=== PATIENT | male | born 1960 | race Caucasian/White ===

== ENCOUNTER 2020-01-31 11:19 | Inpatient (IN) ==
[2020-01-31] MEDS ORDERED: VANCOMYCIN HCL 2,500 MG in SODIUM CHLORIDE 0.9% 500 ML IV ONE (11:57)
[2020-01-31] MEDS ORDERED: VANCOMYCIN CONSULT ACTIVE PRN ×2 (11:57→12:50)
--- NOTE | 2020-01-31 12:11 | Emergency Department Note ---
History of Present Illness General Chief complaint: Infection Stated complaint: RT ARM INFECTION, HERE FOR ADMISSION/OR Time Seen by Provider: 01/31/20 11:29 History of Present Illness Maximum Pain Intensity: 5 This patient is a 59-year-old male that presents emergency department for eval uation of right elbow pain, swelling and redness that has been getting progressively worse over the last week. The patient reports that he had a fall approximately 1 month ago. He noticed the redness and swelling earlier this week, which prompted him to make an appointment with [facility]. He saw [facility] this morning. The elbow was drained. Reportedly, the fluid was purulent in nature, which is why he was sent here for evaluation. He denies any fever. He has not needed to take anything for pain. Home Medications Home Medications Medication Instructions Recorded Confirmed Type Airborne (ascorbate sodium) 1 tab PO UD 08/27/18 01/31/20 History Lantus Solostar U-100 Insulin 22 unit SUBCUT QPM 08/27/18 01/31/20 History Ocuvite Adult 50 Plus 1 cap PO QAM 08/27/18 01/31/20 History ascorbic acid (vitamin C) [Vitamin 1,000 mg PO QAM 08/27/18 01/31/20 History C] aspirin 81 mg PO QAM 08/27/18 01/31/20 History chlorpheniramine maleate 4 mg PO QAM 08/27/18 01/31/20 History [Chlor-Trimeton] echinacea 1 cap PO QAM 08/27/18 01/31/20 History insulin lispro [Humalog KwikPen 6 unit SUBCUT TID 08/27/18 01/31/20 History Insulin] lisinopril 5 mg PO QAM 08/27/18 01/31/20 History metformin 500 mg PO BID 08/27/18 01/31/20 History spironolactone 25 mg PO QAM 08/27/18 01/31/20 History turmeric root extract 1,053 mg PO QAM 08/27/18 01/31/20 History atorvastatin 40 mg PO PM 01/31/20 01/31/20 History carvedilol 12.5 mg PO DAILY 01/31/20 01/31/20 History meloxicam 15 mg PO DAILY 01/31/20 01/31/20 History thiamine HCl (vitamin B1) [Vitamin 0 mg PO QAM 01/31/20 01/31/20 History B-1] Allergies Allergy/AdvReac Type Severity Reaction Status Date / Time Penicillins Allergy Unknown rash Verified 01/31/20 13:35 Sulfa (Sulfonamide Allergy Unknown rash Verified 01/31/20 13:35 Antibiotics) Past Med/Surg History Medical History Congestive heart failure 01/2018 [facility] - 2/2 viral infection - follow up cardiac cath showed severely reduced EF of 10%. Pt put on maximum medical therapy -- repeat echo 08/06/18 showed EF NORMALIZED TO 55% Deep vein thrombosis LLE - early - after injury - treated w/ AC Diabetes mellitus, type 2 IDDM GERD (gastroesophageal reflux disease) History of sciatica Hyperlipidemia Hypertension Osteoarthritis Surgical History History of arthroscopy of right shoulder History of cardiac cath 02/2018 - after episode CHF - ANNETTE Chuck - no stents/angioplasty History of removal of cyst back History of repair of anterior cruciate ligament of left knee History of total knee replacement Rt Nausea and vomiting after administration of anesthetic agent Social History Smoking Status: Never smoker Second Hand Exposure: No; Do You Dip or Chew Tobacco: No; Tobacco Cessation Education Requested by Patient: No Hx Alcohol Use: Yes Alcohol type: beer Hx Substance Use: No Preferred Language: Iraqi Communication Ability: Effective Director Of Community Education Required: No Beliefs That Will Affect Care: None Current Living Situation: Spouse Other Information That Helps Us Care for You: No Feels Safe at Home: Yes Safety Concerns: Feels Safe At This Time Assistive Devices: Contacts and Glasses Review of Systems A total of 10 systems reviewed and were otherwise negative Physical Exam Vital Signs Vital Signs - 24 hr 01/31/20 11:21 Temperature 37 C Temperature Source Oral Pulse Rate 84 Pulse Rhythm Regular Pulse Strength Normal Respiratory Rate 22 Respiratory Effort / Characteristics Non-Labored Spontaneous Respiratory Depth Normal Respiratory Pattern Regular Blood Pressure 126/73 Blood Pressure Mean 90 Blood Pressure Position Sitting Pulse Oximetry 95 Oxygen Delivery Method Room Air Sepsis Recent Fever Within 48 Hours No Sepsis New/Unexplained Change in Mental Status No Sepsis Action Taken by Nursing No Action Required Constitutional WD/WN, vitals as above Eyes EOM intact bilaterally ENMT external ear and nose normal, oropharynx normal Neck trachea midline Respiratory normal respiratory effort, lungs clear to auscultation Cardiovascular RRR, no murmur, no edema Gastrointestinal (Abdomen) normal bowel sounds, soft, nontender, no hepatosplenomegaly Musculoskeletal Significant erythema and edema noted over the olecranon process of the right elbow. Full flexion and extension of the elbow. Radial pulse +2 in the right wrist. Skin no rashes, warm and dry Neurologic Alert and oriented x3. No focal motor deficits. Psychiatric Acting appropriately Course Course Patient was seen and examined Vital signs including blood pressure were reviewed medications list was verified with patient Labs were obtained, and a saline lock was established Orthopedics was consulted. Medications were ordered. Upon reevaluation, the patient was resting comfortably. Orthopedics evaluated the patient at the bedside. He was comfortable with the disposition. The patient will likely be admitted for further evaluation. Consultations Consultation #1: [facility] Administered Medications Sodium Chloride (Nss) 500 mls @ 80 mls/hr IV .[id number] MIRIAM Stop: 03/01/20 12:29 Last Admin: 01/31/20 20:05 Dose: Not Given Documented by: [id number] Admin: 01/31/20 12:42 Dose: 80 mls/hr Documented by: [id number] Insulin Aspart (Insulin Aspart 100 Units/Ml 3 Ml Pen) 0 units SC ACHS MIRIAM Stop: 01/31/20 22:00 Last Admin: 01/31/20 18:45 Dose: 13 units Documented by: [id number] Cosigned by: [id number] Miscellaneous (Chlorpheniramine: Order Awaiting Action) 1 ea N/A QS MIRIAM Stop: 03/01/20 15:59 Last Admin: 01/31/20 16:54 Dose: Not Given Documented by: [id number] Discontinued Medications Vancomycin HCl 2,500 mg/ (Sodium Chloride) 550 mls @ 200 mls/hr IV NOW ONE Stop: 01/31/20 14:41 Last Infusion: 01/31/20 16:45 Dose: 0 mls/hr Documented by: [id number] Admin: 01/31/20 12:42 Dose: 200 mls/hr Documented by: [id number] Miscellaneous Information (Vancomycin Consult Active) 1 ea N/A UD PRN PRN Reason: Consult Stop: 03/01/20 11:56 Last Admin: 01/31/20 12:42 Dose: 1 ea Documented by: [id number] Medical Decision Making Medical Records Attestation: I reviewed the patient's medical records. Home Medications Current Medication List: was personally reviewed by me Laboratory Data Attestation: I reviewed the patient's lab results. Result diagrams: 01/31/20 12:13 01/31/20 13:10 Lab Results 01/31/20 01/31/20 01/31/20 Range/Units 12:13 12:13 12:13 WBC 7.51 (4.8-10.8) K/uL RBC 4.42 L (4.7-6.1) M/uL Hgb 14.2 (14.0-18.0) g/dL Hct 43.5 (42-52) % MCV 98.4 (80-100) fL MCH 32.1 (25-34) pg MCHC 32.6 (32-36) g/dL RDW Std Deviation 47.5 H (36.4-46.3) fL RDW Coeff of Brain 13.1 (11.5-14.5) % Plt Count 219 (130-400) K/uL MPV 11.4 H (7.4-10.4) fL Immature Gran % (Auto) 0.3 % Neut % (Auto) 68.5 % Lymph % (Auto) 15.0 % [place] % (Auto) 14.0 % Eos % (Auto) 2.1 % Baso % (Auto) 0.1 % Neut # (Auto) 5.14 (1.4-6.5) K/uL Lymph # (Auto) 1.13 L (1.2-3.4) K/uL [place] # (Auto) 1.05 H (0.11-0.59) K/uL Eos # (Auto) 0.16 (0-0.5) K/uL Baso # (Auto) 0.01 (0-0.2) K/uL Immature Gran # (Auto) 0.02 (0.00-0.02) K/uL ESR 61 H (0-14) mm/hr PT 10.8 (9.0-12.0) Seconds INR 1.0 (0.9-1.1) Sodium (136-145) mmol/L Potassium (3.5-5.1) mmol/L Chloride (98-107) mmol/L Carbon Dioxide (21-32) mmol/L Anion Gap (3-11) BUN (7-18) mg/dl Creatinine (0.6-1.4) mg/dl Est Cr Clr Drug Dosing ml/min Est GFR ( Amer) Est GFR (Non-Af Amer) BUN/Creatinine Ratio (10-20) Glucose (70-99) mg/dl Calcium (8.5-10.1) mg/dl Total Bilirubin (0.2-1) mg/dl AST (15-37) U/L ALT (12-78) U/L Alkaline Phosphatase (45-117) U/L C-Reactive Protein (0-0.29) mg/dl Total Protein (6.4-8.2) gm/dl Albumin (3.4-5.0) gm/dl Globulin (2.5-4.0) gm/dl Albumin/Globulin Ratio (0.9-2) 01/31/20 Range/Units 12:13 WBC (4.8-10.8) K/uL RBC (4.7-6.1) M/uL Hgb (14.0-18.0) g/dL Hct (42-52) % MCV (80-100) fL MCH (25-34) pg MCHC (32-36) g/dL RDW Std Deviation (36.4-46.3) fL RDW Coeff of Brain (11.5-14.5) % Plt Count (130-400) K/uL MPV (7.4-10.4) fL Immature Gran % (Auto) % Neut % (Auto) % Lymph % (Auto) % [place] % (Auto) % Eos % (Auto) % Baso % (Auto) % Neut # (Auto) (1.4-6.5) K/uL Lymph # (Auto) (1.2-3.4) K/uL [place] # (Auto) (0.11-0.59) K/uL Eos # (Auto) (0-0.5) K/uL Baso # (Auto) (0-0.2) K/uL Immature Gran # (Auto) (0.00-0.02) K/uL ESR (0-14) mm/hr PT (9.0-12.0) Seconds INR (0.9-1.1) Sodium 135 L (136-145) mmol/L Potassium (3.5-5.1) mmol/L Chloride 105 (98-107) mmol/L Carbon Dioxide 26 (21-32) mmol/L Anion Gap 4.0 (3-11) BUN 15 (7-18) mg/dl Creatinine 0.88 (0.6-1.4) mg/dl Est Cr Clr Drug Dosing 128.4 ml/min Est GFR ( Amer) 110.5 Est GFR (Non-Af Amer) 95.4 BUN/Creatinine Ratio 17.2 (10-20) Glucose 218 H (70-99) mg/dl Calcium 8.9 (8.5-10.1) mg/dl Total Bilirubin 0.6 (0.2-1) mg/dl AST (15-37) U/L ALT 58 (12-78) U/L Alkaline Phosphatase 113 (45-117) U/L C-Reactive Protein 8.91 H (0-0.29) mg/dl Total Protein 7.5 (6.4-8.2) gm/dl Albumin 3.1 L (3.4-5.0) gm/dl Globulin 4.4 H (2.5-4.0) gm/dl Albumin/Globulin Ratio 0.7 L (0.9-2) MDM Narrative Differential diagnosis: Septic bursitis, septic joint, cellulitis, among others were considered This patient is a 59-year-old male who presents emergency department from [facility] for evaluation of right elbow redness, swelling and pain after a fall approximately 1 month ago. The bursa was reportedly drained by orthopedics earlier this morning, and concern for infection. For this reason, he was sent to the emergency department for likely inpatient management, IV antibiotics and surgery. On exam, he had full flexion and extension of the elbow. He was neurovascularly intact. Vital signs were stable. He was evaluated by orthopedics at the bedside. He will be started on vancomycin. He will be admitted by orthopedics for further management. Impression & Plan Septic bursitis Discharge Plan Visit Data Chief Complaint: Infection Stated Complaint: RT ARM INFECTION, HERE FOR ADMISSION/OR ED Provider: Maurilio Bowden ED Midlevel Provider: Glenna King Discharge Problem: Septic bursitis Patient Disposition: Admitted As Inpatient Discharge Instructions Interventions: ED Discharge Assessment Last Done: 01/31/20 14:21
[2020-01-31 12:29] LABS: Basophils # (auto) 0.01 K/uL (0-0.2); Basophils % (auto) 0.1 %; Eosinophils # (auto) 0.16 K/uL (0-0.5); Eosinophils % (auto) 2.1 %; Hematocrit (blood only) 43.5 % (42-52); Hemoglobin 14.2 g/dL (14.0-18.0); Immature Granulocytes # (auto) 0.02 K/uL (0.00-0.02); Immature Granulocytes % (auto) 0.3 %; Lymphocytes # (auto) 1.13 K/uL (1.2-3.4); Mean Corpuscular Hemoglobin 32.1 pg (25-34); Mean Corpuscular Hgb Conc 32.6 g/dL (32-36); Mean Corpuscular Volume 98.4 fL (80-100); Mean Platelet Volume 11.4 fL (7.4-10.4); Monocytes # (auto) 1.05 K/uL (0.11-0.59); Neutrophils # (auto) 5.14 K/uL (1.4-6.5); Neutrophils % (auto) 68.5 %; Platelet Count 219 K/uL (130-400); RDW Coefficient of Variation 13.1 % (11.5-14.5); RDW Standard Deviation 47.5 fL (36.4-46.3); Red Blood Count 4.42 M/uL (4.7-6.1); White Blood Count 7.51 K/uL (4.8-10.8)
[2020-01-31 12:39] LABS: Prothrombin Time 10.8 Seconds (9.0-12.0)
[2020-01-31] MEDS: SODIUM CHLORIDE 0.9% 500 ML IV SCH ×2 (12:42→20:05)
[2020-01-31 12:54] LABS: Albumin Level 3.1 gm/dl (3.4-5.0); BUN Creatinine Ratio 17.2 (10-20); Calcium 8.9 mg/dl (8.5-10.1); Creatinine Clr Calc Pharmacy 128.4 ml/min; Est GFR (African American) 110.5; Est GFR (Non-African American) 95.4
[2020-01-31 12:59] LABS: Albumin Globulin Ratio 0.7 (0.9-2); Bilirubin,Total 0.6 mg/dl (0.2-1); C Reactive Protein 8.91 mg/dl (0-0.29); Globulin 4.4 gm/dl (2.5-4.0); Total Protein 7.5 gm/dl (6.4-8.2)
--- NOTE | 2020-01-31 13:15 | Hospitalist Consultation ---
Date of Consultation January 31, 2020 Assessment & Plan (1) Olecranon bursitis: Patient scheduled to the operating room on 02/01/2020 in the morning patient is diabetic with an infection he was given vancomycin in the emergency department cultures were obtained. 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 There was discussion at that point time about a defibrillator. We have no recent echocardiogram here. Patient states he recently saw his fruit trimmer, Alma Gagnon, at [facility] and was told everything was "okay". He however continues to take carvedilol 12.5 twice daily lisinopril 5 spironolactone 25. He has persistent bilateral lower extremity edema he is on aspirin atorvastatin although his catheterization in February 2018 showed only very minor luminal irregularities. (3) Diabetes mellitus, type 2: Patient typically takes insulin lispro 6 with meals Lantus 20 4 at night plus Metformin twice daily (4) Hypertension: History of Present Illness History of Present Illness SOC the patient for medical consultation is he is here for a washout of his right elbow which looks to have a fairly significantly infected olecranon bursa. Patient is a history of lateral cardiomyopathy in the past try to obtain more current records. Remains on medications for heart failure with beta-quin ANASTASIA inhibitor mild diuretic also on aspirin and statin although was coronary anatomy was not significantly altered based on catheterization of 2018 He is also diabetic does not daily check his sugars he is morbidly obese Otherwise though he does not have any anginal symptoms he is dyspneic with exertion likely due to his obesity he denies having sleep apnea he is tolerated anesthesia in the past exception of some minor nausea Allergies Allergy/AdvReac Type Severity Reaction Status Date / Time Penicillins Allergy Unknown rash Verified 09/04/18 08:07 Sulfa (Sulfonamide Allergy Unknown rash Verified 09/04/18 08:07 Antibiotics) Home Medications Home Medications Medication Instructions Recorded Confirmed Type Airborne (ascorbate sodium) See Rx Instructions .ROUTE .COMPLEX 08/27/18 09/04/18 History Lantus Solostar U-100 Insulin 24 unit SUBCUT QPM 08/27/18 09/04/18 History Ocuvite Adult 50 Plus 1 cap PO QAM 08/27/18 09/04/18 History Vitamin B-1 1 dose PO QAM 08/27/18 09/04/18 History ascorbic acid (vitamin C) [Vitamin 2 g PO QAM 08/27/18 09/04/18 History C] aspirin 81 mg PO QAM 08/27/18 09/04/18 History atorvastatin 80 mg PO PM 08/27/18 09/04/18 History carvedilol 12.5 mg PO BID 08/27/18 09/04/18 History chlorpheniramine maleate 4 mg PO QAM 08/27/18 09/04/18 History [Chlor-Trimeton] echinacea 1 cap PO QAM 08/27/18 09/04/18 History insulin lispro [Humalog KwikPen 6 unit SUBCUT TID 08/27/18 09/04/18 History Insulin] lisinopril 5 mg PO QAM 08/27/18 09/04/18 History metformin 500 mg PO BID 08/27/18 09/04/18 History multivitamin with minerals [Men's 1 tab PO QAM 08/27/18 09/04/18 History One Daily] spironolactone 25 mg PO QAM 08/27/18 09/04/18 History turmeric root extract 1,053 mg PO QAM 08/27/18 09/04/18 History oxycodone-acetaminophen [Percocet] 1 - 2 tab PO .q4-6h PRN #30 tab 09/04/18 Rx Patient History Medical History (Updated 01/31/20 @ 13:06 by Mike Fishman MD) Congestive heart failure 01/2018 [facility] - 2/2 viral infection - follow up cardiac cath showed severely reduced EF of 10%. Pt put on maximum medical therapy -- repeat echo 08/06/18 showed EF NORMALIZED TO 55% Deep vein thrombosis LLE - early - after injury - treated w/ AC Diabetes mellitus, type 2 IDDM GERD (gastroesophageal reflux disease) History of sciatica Hyperlipidemia Hypertension Osteoarthritis Surgical History History of arthroscopy of right shoulder History of cardiac cath 02/2018 - after episode CHF - ANNETTE Chuck - no stents/angioplasty History of removal of cyst back History of repair of anterior cruciate ligament of left knee History of total knee replacement Rt Nausea and vomiting after administration of anesthetic agent Social History Smoking Status: Never smoker Second Hand Exposure: No; Do You Dip or Chew Tobacco: No; Tobacco Cessation Education Requested by Patient: No Hx Alcohol Use: Yes Alcohol type: beer Hx Substance Use: No Preferred Language: Citizen Of [place] Communication Ability: Effective Ski Production Supervisor Required: No Beliefs That Will Affect Care: None Current Living Situation: Spouse Other Information That Helps Us Care for You: No Feels Safe at Home: Yes Safety Concerns: Feels Safe At This Time Assistive Devices: Glasses Review of Systems Review of Systems: Mild distress and fatigue no headache, blurry or double vision no speech or swallowing issues no chest pain, pressure or palpitations Dyspnea on exertion he attributes to being overweight, no cough or wheezes no abdominal pain, nausea or vomiting, diarrhea or constipation no dysuria, hematuria or frequency Right elbow pain and swelling, bilateral lower extremity swelling no back pain, CVA tenderness or radicular pain no bruising, bleeding or rashes no focal signs of weakness or numbness or altered sensation no complaints of anxiety or depression. Physical Exam Physical Exam: The patient appeared well nourished and normally developed. His protuberant abdomen is morbidly obese with a BMI of 38.5 Vital signs as documented. Head exam is normocephalic atraumatic no scleral icterus Neck is without JVD, thyromegaly, or carotid bruits. Lungs are clear to auscultation, no focal loss of breath sounds Cardiac exam, Rhythm is regular.. No murmurs, rubs or gallops. Abdominal exam reveals normal bowel sounds, soft non tender, no masses Extremities are 2+ edematous and both extremities are reddened Right elbow is fluctuant erythemic with a entrance wound seen at the point of his elbow Neurologic exam is alert and oriented, no focal loss of strength or sensation Skin is and is of possible cellulitis with likely deeper abscess on his right elbow Psychologically is without concerns for anxiety or depression. Results & Data Results & Data ([facility]) Vital Signs (Past 12 Hours) Vital Signs Temp Pulse Resp BP Pulse Ox 01/31/20 11:21 98.6 F 84 22 126/73 95 PG Care Time/CCT Total # of Minutes Spent Total Time Spent with Patient: Total time spent is greater than 50% in coordination of care (as documented) at patient's floor/unit and/or counseling patient: Coding Level of Care Code 70843 Inpt Consult Level 4 Diagnoses Olecranon bursitis M70.20 Congestive heart failure I50.9 Diabetes mellitus, type 2 E11.9 Hypertension I10
[2020-01-31 13:30] LABS: Potassium 4.1 mmol/L (3.5-5.1)
--- NOTE | 2020-01-31 13:46 | XRay Report ---
TWO VIEW CHEST CLINICAL HISTORY: Preoperative examination. FINDINGS: PA and lateral chest radiographs are compared to study dated 07/19/2013. The heart is enlarg ed noting atherosclerotic calcification of the thoracic aorta. The pulmonary vasculature is nonconges sky. There is bibasilar scarring/atelectasis. No airspace consolidation or pleural effusion is identi fied. There is no pneumothorax. The skeletal structures are osteopenic. There are numerous healed lef t-sided rib fractures. Degenerative change is seen throughout the thoracic spine. IMPRESSION: Cardiomegaly with no active disease in the chest. ACT 112: Negative or not required by law. Electronically signed by: J Luis Berry M.D. 01/31/2020 1:44 PM
[2020-01-31] MEDS ORDERED: PHARMACY GLYCEMIC MGMT CONSULT PRN (15:14)
--- NOTE | 2020-01-31 15:17 | History & Physical Report ---
Date of Service January 31, 2020 Assessment & Plan (1) Olecranon bursitis: Septic olecranon bursitis right Gram stain and culture is pending at this time. Patient started on vancomycin. He will be made n.p.o. after midnight for planned irrigation and debridement of his septic olecranon bursitis of the right elbow. Hospitalist consult has been placed for preoperative clearance. Admission and Anticipated Discharge Date Admission Date: January 31, 2020 History of Present Illness Chief Complaint: Right elbow pain and swelling Primary Care Provider: Rachelyessenia Thakur Patient is a 59-year-old white male who was seen in Dr. Savage's office today. He had noticed an increase swelling of his right elbow that started a few days ago. Patient states that he had bumped his elbow approximately month ago and had torn the skin off of it a little bit. He had no problems with it since that time however in the last few days, he noticed increased swelling and some erythema. This continued to progress to the point it became more painful and more swollen. Denies any fever or chills or nausea and vomiting. No flu or cold-like symptoms. He was able to get into see Dr. Savage in the office today. He was able to draw off at least 40 cc of fluid from the swollen olecr anon bursa area. This looked obviously purulent and with the increasing erythema going up the arm, it was felt that the patient would need an irrigation debridement of a septic olecranon bursitis. He is now here in the hospital to be admitted for IV antibiotics and I&D of his right elbow. Allergies Allergy/AdvReac Type Severity Reaction Status Date / Time Penicillins Allergy Unknown rash Verified 01/31/20 13:35 Sulfa (Sulfonamide Allergy Unknown rash Verified 01/31/20 13:35 Antibiotics) Home Medications Home Medications Medication Instructions Recorded Confirmed Type Airborne (ascorbate sodium) 1 tab PO UD 08/27/18 01/31/20 History Lantus Solostar U-100 Insulin 22 unit SUBCUT QPM 08/27/18 01/31/20 History Ocuvite Adult 50 Plus 1 cap PO QAM 08/27/18 01/31/20 History ascorbic acid (vitamin C) [Vitamin 1,000 mg PO QAM 08/27/18 01/31/20 History C] aspirin 81 mg PO QAM 08/27/18 01/31/20 History chlorpheniramine maleate 4 mg PO QAM 08/27/18 01/31/20 History [Chlor-Trimeton] echinacea 1 cap PO QAM 08/27/18 01/31/20 History insulin lispro [Humalog KwikPen 6 unit SUBCUT TID 08/27/18 01/31/20 History Insulin] lisinopril 5 mg PO QAM 08/27/18 01/31/20 History metformin 500 mg PO BID 08/27/18 01/31/20 History spironolactone 25 mg PO QAM 08/27/18 01/31/20 History turmeric root extract 1,053 mg PO QAM 08/27/18 01/31/20 History atorvastatin 40 mg PO PM 01/31/20 01/31/20 History carvedilol 12.5 mg PO DAILY 01/31/20 01/31/20 History meloxicam 15 mg PO DAILY 01/31/20 01/31/20 History thiamine HCl (vitamin B1) [Vitamin 0 mg PO QAM 01/31/20 01/31/20 History B-1] Past Med/Surg History Medical History Congestive heart failure 01/2018 [facility] - 2/2 viral infection - follow up cardiac cath showed severely reduced EF of 10%. Pt put on maximum medical therapy -- repeat echo 08/06/18 showed EF NORMALIZED TO 55% Deep vein thrombosis LLE - early - after injury - treated w/ AC Diabetes mellitus, type 2 IDDM GERD (gastroesophageal reflux disease) History of sciatica Hyperlipidemia Hypertension Osteoarthritis Surgical History History of arthroscopy of right shoulder History of cardiac cath 02/2018 - after episode CHF - ANNETTE Chuck - no stents/angioplasty History of removal of cyst back History of repair of anterior cruciate ligament of left knee History of total knee replacement Rt Nausea and vomiting after administration of anesthetic agent Social History Smoking Status: Never smoker Second Hand Exposure: No; Do You Dip or Chew Tobacco: No; Tobacco Cessation Education Requested by Patient: No Hx Alcohol Use: Yes Alcohol type: beer Hx Substance Use: No Preferred Language: Slovak Communication Ability: Effective Parcel 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 Clerk Required: No Beliefs That Will Affect Care: None Current Living Situation: Spouse Other Information That Helps Us Care for You: No Feels Safe at Home: Yes Safety Concerns: Feels Safe At This Time Assistive Devices: Contacts and Glasses Review of Systems Review of Systems: All systems reviewed & are unremarkable except as noted in HPI & below Physical Exam Constitutional: Obese white male, pleasant and cooperative, no acute distress Eyes: PERRL, conjunctivae normal, anicteric sclerae ENMT: external ear and nose normal, oropharynx normal Respiratory: normal respiratory effort, lungs clear to auscultation Cardiovascular: Rate/Rhythm: regular rate and regular rhythm Gastrointestinal (Abdomen): normal bowel sounds, soft, nontender, no hepatosplenomegaly Musculoskeletal: On examination of his right elbow, he has an area over the olecranon bursa that is mild to moderately swollen. There is a slight amount of fluctuance to the swollen area that had been recently aspirated. Moderate erythema over the elbow that is traveling proximally. Tender on palpation over the right elbow. Denies tenderness in the upper arm into the axilla. Denies any pain in the forearm or wrist. He has good range of motion of the right elbow at this time and has full extension and almost full flexion but states it feels tight when getting close to full flexion. Denies any numbness or tingling traveling down the right arm into the fingers. Sensation is intact. Capillary refill is less than 2 seconds. Pulses are equal bilaterally of the upper extremities. Neurologic: No gross motor or sensory loss seen at this time. Psychiatric: A+Ox3, euthymic affect Results & Data Results & Data ([facility]) Vital Signs (Past 12 Hours) Vital Signs Temp Pulse Pulse Resp BP BP Pulse Ox 01/31/20 14:51 37 C 66 17 119/79 98 01/31/20 13:07 37 C 75 22 133/68 95 01/31/20 11:21 37 C 84 22 126/73 95 Code Status & VTE Plan VTE Prophylaxis Plan VTE Prophylaxis will be ordered: Yes
[2020-01-31] MEDS ORDERED: GLUCAGON FOR INJ 1 MG VIAL SQ PRN (15:30)
[2020-01-31] MEDS ORDERED: DEXTROSE 50% 50 ML SYRINGE IV PRN (15:30)
[2020-01-31] MEDS ORDERED: GLUCOSE 10 TABS/TUBE PO PRN (15:30)
[2020-01-31] MEDS ORDERED: GLUCOSE 40% GEL 15 GM TUBE PO PRN (15:30)
[2020-01-31] MEDS ORDERED: CARBOHYDRATES FOR HYPOGLYCEMIA PO PRN (15:30)
--- NOTE | 2020-01-31 15:36 | Pharmacy Report ---
Pharmacy Abx Dose Short Note - Date of Service January 31, 2020 - Assessment & Plan Assessment 59 year old M ordered vancomycin IV for right septic olecranon bursitis Right elbow and BC pending Plan Vancomycin * Loading dose: 2500 mg (20 mg/kg) * Maintenance dose: 1500 mg (11.6 mg/kg) IV q10 hours * reduced dose and extended dosing interval due to likelihood of drug accumulation in obesity * Goal trough level: ~15 mcg/mL * Trough level ordered for: 02/01 @ 5395 Pharmacy will continue to follow and will adjust dose/frequency as necessary. Thank you.
--- NOTE | 2020-01-31 16:16 | Electrocardiogram Report ---
Test Reason : Blood Pressure : / mmHG Vent. Rate : 071 BPM Atrial Rate : 071 BPM P-R Int : 174 ms QRS Dur : 096 ms QT Int : 408 ms P-R-T Axes : 013 011 047 degrees QTc Int : 443 ms Normal sinus rhythm Normal ECG When compared with ECG of 23-AUG-2013 08:41, Premature atrial complexes are no longer Present Confirmed by Felice Weiss ([id number]) on 01/31/2020 4:16:01 PM Referred By: REFERRED SELF Confirmed By:Felice Weiss
[2020-01-31] MEDS: INSULIN ASPART 100 UNITS/ML 3 ML PEN SC SCH ×2 (18:45→21:42)
[2020-01-31] MEDS ORDERED: ATORVASTATIN 40 MG TAB PO SCH (21:00)
[2020-01-31] MEDS: carvediloL 12.5 MG TAB PO SCH (21:06)
[2020-01-31] MEDS: INSULIN GLARGINE SOLOSTAR 100 UNITS/ML 3 ML PEN SC SCH (21:41)
[2020-01-31] MEDS ORDERED: MoRPHine SULFATE 2 MG/ML CARP IV PRN (21:54)
[2020-01-31] MEDS ORDERED: ACETAMINOPHEN 325 MG TAB PO PRN (21:54)
[2020-01-31] MEDS ORDERED: SODIUM CHLORIDE 0.9% 1000ML 1,000 ML IV SCH (22:00)
[2020-01-31] MEDS: VANCOMYCIN HCL 1,500 MG in SODIUM CHLORIDE 0.9% 500 ML IV SCH (22:32)
[2020-02-01] MEDS: INSULIN ASPART 100 UNITS/ML 3 ML PEN SC SCH ×5 (00:35→21:35)
[2020-02-01] MEDS ORDERED: oxyCODONE/ACETAMINOPHEN 5mg/325mg TAB PO PRN (00:59)
[2020-02-01 07:25] LABS: Creatinine Clr Calc Pharmacy 144.9 ml/min; Est GFR (African American) 116.1; Est GFR (Non-African American) 100.2
--- NOTE | 2020-02-01 07:41 | History & Physical Bridge Note ---
Date of Service February 01, 2020 History & Physical Bridge Note I have examined the patient, reviewed the History & Physical and in the interval since the performance of the History & Physical I have noted the following changes of clinical significance: no changes noted
--- NOTE | 2020-02-01 07:48 | Orthopedic Progress Note ---
Date of Service February 01, 2020 Assessment & Plan (1) Olecranon bursitis: Septic olecranon bursitis right elbow not relieved with IV antibiotics and aspiration. Needs to proceed with incision drainage irrigation debridement packing with iodoform gauze on a urgent basis today view of comorbidity of insulin-dependent diabetes. Subjective Does have increased soreness in right elbow and inability to sleep in hospital Review of Systems Review of Systems: No chills or signs of sepsis at this point Physical Exam Physical Exam: Recurrence of effusion with large olecranon bursa fluid collection with erythema spreading up posterior triceps area Results & Data ([facility]) Vital Signs (Past 12 Hours) Vital Signs Temp Pulse Resp BP Pulse Ox 01/31/20 23:31 37.7 C H 76 18 110/70 94 01/31/20 21:05 72 136/77
[2020-02-01] MEDS: CEROVITE ADV FORMULA TAB PO SCH (07:59)
[2020-02-01] MEDS: lisinopril 5 MG TAB PO SCH (07:59)
[2020-02-01] MEDS: SPIRONOLACTONE 25 MG TAB PO SCH (07:59)
[2020-02-01] MEDS: carvediloL 12.5 MG TAB PO SCH ×2 (07:59→20:50)
[2020-02-01] MEDS: VANCOMYCIN HCL 1,500 MG in SODIUM CHLORIDE 0.9% 500 ML IV SCH ×2 (08:03→19:33)
[2020-02-01] MEDS ORDERED: NON-FORMULARY MEDICATION (Chlorpheniramine Maleate [Chlor-Trimeton] 4 MG) PO SCH (09:00)
[2020-02-01 09:09] LABS: Estimated Average Glucose 232 mg/dl; Hemoglobin A1C 9.7 % (4.5-5.6)
[2020-02-01] MEDS ORDERED: fentaNYL citrate 100 MCG/2 ML VIAL ONE ×2 (09:17→11:05)
[2020-02-01] MEDS ORDERED: LIDOCAINE HCL 2% 2 ML VIAL/AMP(20MG/ML) INFIL ONE (09:17)
[2020-02-01] MEDS ORDERED: ONDANSETRON INJ 2 MG/ML 2 ML VIAL ONE (09:17)
[2020-02-01] MEDS ORDERED: BACITRACIN INJ 50,000 UNIT VIAL ONE (09:17)
[2020-02-01] MEDS ORDERED: PROPOFOL IV EMULSION 10 MG/ML 20 ML VIAL IV ONE (09:17)
[2020-02-01] MEDS ORDERED: MIDAZOLAM HCL 1 MG/ML 2ML VIAL ONE (09:18)
--- NOTE | 2020-02-01 09:18 | Anesthesiology Consultation ---
Date of Service February 01, 2020 Assessment & Plan ASA [id number] Proposed Anesthesia Anesthesia Type: General Risk / Benefits Reviewed With: PT / POA / Parent / Guardian, Accepts Plan and Informed Consent Obtained History Surgery Operation Date: 02/01/20 07:30 Proposed Procedures p Right Elbow Incision and Drainage Olecrannon Bursa - Paul Savage MD Height/Weight Height: 6 ft Weight: 128.7 kg Allergies Allergy/AdvReac Type Severity Reaction Status Date / Time Penicillins Allergy Unknown rash Verified 01/31/20 13:35 Sulfa (Sulfonamide Allergy Unknown rash Verified 01/31/20 13:35 Antibiotics) Medications Home Medications Medication Instructions Recorded Confirmed Last Taken Airborne (ascorbate sodium) 1 tab PO UD 08/27/18 01/31/20 09/03/18 08:00 Lantus Solostar U-100 Insulin 22 unit SUBCUT QPM 08/27/18 01/31/20 09/03/18 21:30 Ocuvite Adult 50 Plus 1 cap PO QAM 08/27/18 01/31/20 08/31/18 08:00 ascorbic acid (vitamin C) [Vitamin 1,000 mg PO QAM 08/27/18 01/31/20 09/03/18 07:00 C] aspirin 81 mg PO QAM 08/27/18 01/31/20 09/03/18 07:00 chlorpheniramine maleate 4 mg PO QAM 08/27/18 01/31/20 09/03/18 07:00 [Chlor-Trimeton] echinacea 1 cap PO QAM 08/27/18 01/31/20 08/31/18 08:00 insulin lispro [Humalog KwikPen 6 unit SUBCUT TID 08/27/18 01/31/20 09/03/18 17:00 Insulin] lisinopril 5 mg PO QAM 08/27/18 01/31/20 09/03/18 08:00 metformin 500 mg PO BID 08/27/18 01/31/20 09/03/18 20:00 spironolactone 25 mg PO QAM 08/27/18 01/31/20 09/03/18 08:00 turmeric root extract 1,053 mg PO QAM 08/27/18 01/31/20 08/31/18 08:00 atorvastatin 40 mg PO PM 01/31/20 01/31/20 Unknown carvedilol 12.5 mg PO DAILY 01/31/20 01/31/20 Unknown meloxicam 15 mg PO DAILY 01/31/20 01/31/20 Unknown thiamine HCl (vitamin B1) [Vitamin 0 mg PO QAM 01/31/20 01/31/20 Unknown B-1] Active Medications Generic Name Dose Route Start Last Admin Trade Name Freq PRN Reason Stop Dose Admin Acetaminophen 650 mg 01/31/20 21:54 01/31/20 22:30 Acetaminophen 325 Mg Tab PO 03/01/20 21:53 650 mg Q4H PRN Administration pain, fever Atorvastatin Calcium 80 mg 01/31/20 21:00 01/31/20 21:06 Atorvastatin 40 Mg Tab PO 03/01/20 20:59 40 mg PM MIRIAM Administration Carvedilol 12.5 mg 01/31/20 21:00 02/01/20 07:59 Carvedilol 12.5 Mg Tab PO 03/01/20 20:59 12.5 mg BID MIRIAM Administration Vancomycin HCl 1,500 mg/ 530 mls @ 200 mls/hr 01/31/20 23:00 02/01/20 08:03 Sodium Chloride IV 02/07/20 11:59 200 mls/hr Q10H MIRIAM Administration Sodium Chloride 1,000 mls @ 80 mls/hr 01/31/20 22:00 02/01/20 01:12 Nss 1000ml IV 03/01/20 21:59 80 mls/hr .[id number] MIRIAM Infusion Insulin Aspart 0 units 02/01/20 00:00 02/01/20 06:38 Insulin Aspart 100 Units/Ml 3 Ml Pen SC 03/02/20 00:00 Not Given Q6 MIRIAM Insulin Glargine 0 units 01/31/20 21:00 01/31/20 21:41 Insulin Glargine Solostar 100 Units/Ml 3 Ml Pen SC 03/01/20 20:59 22 units HS MIRIAM Administration Protocol Lisinopril 5 mg 02/01/20 09:00 02/01/20 07:59 Lisinopril 5 Mg Tab PO 03/02/20 08:59 5 mg QAM MIRIAM Administration Miscellaneous 1 ea 01/31/20 16:00 02/01/20 07:54 Chlorpheniramine: Order Awaiting Action N/A 03/01/20 15:59 Not Given QS MIRIAM Multivitamins/Minerals 1 tab 02/01/20 09:00 02/01/20 07:59 Cerovite Adv Formula Tab PO 03/02/20 08:59 1 tab QAM MIRIAM Administration Oxycodone/Acetaminophen 1 tab 02/01/20 00:59 02/01/20 02:08 Oxycodone/Acetaminophen 5mg/325mg Tab PO 02/15/20 00:58 1 tab Q4H PRN Administration Pain Spironolactone 25 mg 02/01/20 09:00 02/01/20 07:59 Spironolactone 25 Mg Tab PO 03/02/20 08:59 25 mg QAM MIRIAM Administration NPO Date Last Intake of Fluids: 01/31/20 Time Last Intake of Fluids: 19:00 Last Intake of Fluids Comment: small sip of water with AM medication Date Last Intake of Solids: 01/31/20 Time Last Intake of Solids: 19:00 Past Medical History Medical History Congestive heart failure 01/2018 [facility] - 2/2 viral infection - follow up cardiac cath showed severely reduced EF of 10%. Pt put on maximum medical therapy -- repeat echo 08/06/18 showed EF NORMALIZED TO 55% Deep vein thrombosis LLE - early - after injury - treated w/ AC Diabetes mellitus, type 2 IDDM GERD (gastroesophageal reflux disease) History of sciatica Hyperlipidemia Hypertension Osteoarthritis Exercise / Class Metabolic Activity II 4-5 Yardwork/Stairs/Walk up hill Past Surgical History Surgical History History of arthroscopy of right shoulder History of cardiac cath 02/2018 - after episode CHF - ANNETTE [facility] - no stents/angioplasty History of removal of cyst back History of repair of anterior cruciate ligament of left knee History of total knee replacement Rt Nausea and vomiting after administration of anesthetic agent Past Anesthesia History No Hx of Anesthesia Complications and No Family Hx of Anesthesia Complications History of PONV No Hx of PONV and No Hx of Motion Sickness Social History Smoking Status: Never smoker Do You Dip or Chew Tobacco: No Hx Alcohol Use: Yes Alcohol type: beer alcohol intake frequency: a few times a week Hx Substance Use: No substance use type: does not use Review of Systems denies fever/cough/ colds/ chest pain/ SOB/ JEROMY denies JEROMY Physical Exam Vital Signs Last Vital Signs Temp 36.6 C 02/01/20 07:55 Pulse 68 02/01/20 07:55 Resp 16 02/01/20 07:55 BP 120/80 02/01/20 07:55 Pulse Ox 94 02/01/20 07:55 ENMT Mouth: no TMJ abnormality and no dentition abnormality Thyromental Distance: > or= 3.5 Finger Breadths Mallampati Class: II Neck + thick neck and + facial hair; neck extension not limited Respiratory normal respiratory effort; no respiratory distress Auscultation: lungs clear to auscultation bilaterally Cardiovascular Rate/Rhythm: regular rate and regular rhythm Neurologic moves all extremities Psychiatric Orientation: alert and oriented x 3 Testing Laboratory Results 01/31/20 12:13 02/01/20 06:11 PT 10.8 Seconds (9.0-12.0) 01/31/20 12:13 INR 1.0 (0.9-1.1) 01/31/20 12:13 Hemoglobin A1c 9.7 % (4.5-5.6) H 02/01/20 06:11 Blood Type O Positive 01/31/20 13:48 Antibody Screen NEGATIVE 01/31/20 13:48 02/01/20 02/01/20 01/31/20 09:14 05:59 23:53 POC Glucose 153 H 140 H 169 H
[2020-02-01] MEDS ORDERED: ROCURONIUM BROMIDE 10 MG/ML 5 ML VIAL IV ONE (09:54)
[2020-02-01] MEDS ORDERED: PHENYLEPHRINE 100MCG/ML 5ML SYR ONE (09:54)
[2020-02-01] MEDS ORDERED: ePHEDrine sulfate 50 MG/ML SYR ONE (09:58)
[2020-02-01] MEDS ORDERED: GLYCOPYRROLATE 0.2 MG/ML VIAL ONE (10:29)
[2020-02-01] MEDS ORDERED: NEOSTIGMINE METHYLSULFATE 5 MG/5 ML SYR ONE (10:29)
--- NOTE | 2020-02-01 11:02 | Post Operative Brief Note ---
Immediate Post Op Note v1 Date of Surgery February 01, 2020 Pre & Post Diagnosis Operation Date: 02/01/20 07:30 Pre-Op Diagnosis: RIGHT SEPTIC OLECRANON BURSITIS Post-Op Diagnosis: RIGHT SEPTIC OLECRANON BURSITIS I identified the patient and participated in the time-out.: Yes Procedure Operation Date: 02/01/20 07:30 Actual Procedures p Right Elbow Incision and Drainage, Olecranon Bursectomy, excision of suture material, packing(Right) - Paul Savage MD Surgeon Paul Savage MD Cornice Maker none Estimated Blood Loss 3 Findings Consistent with Post-Op Diagnosis Specimens Culture x1 olecranon bursa Anesthesia Type General Complications none Disposition Accompanied Patient To Recovery: No Disposition: Recovery Room Overlapping Procedure I was immediately available: during the entire case.
[2020-02-01] MEDS ORDERED: HYDROmorphone INJ 2 MG/ML SYR/VIAL IV PRN (11:06)
[2020-02-01] MEDS ORDERED: ATROPINE SULFATE 0.1 MG/ML 10ML SYR IV PRN (11:06)
[2020-02-01] MEDS ORDERED: ONDANSETRON INJ 2 MG/ML 2 ML VIAL IV PRN ×2 (11:06→13:50)
[2020-02-01] MEDS ORDERED: ePHEDrine sulfate 50 MG/ML AMP IV PRN (11:06)
[2020-02-01] MEDS: fentaNYL citrate 100 MCG/2 ML VIAL IV PRN ×2 (11:07→11:12)
--- NOTE | 2020-02-01 11:10 | Operative Report ---
Post Operative Report Pre & Post Diagnosis Operation Date: 02/01/20 07:30 Pre-Op Diagnosis: RIGHT SEPTIC OLECRANON BURSITIS, history of triceps tendon repair in August 2018 Post-Op Diagnosis: RIGHT SEPTIC OLECRANON BURSITIS, history of triceps tendon repair August 2018 I identified the patient and participated in the time-out.: Yes Procedure Operation Date: 02/01/20 07:30 Actual Procedures p Right Elbow Incision and Drainage, Olecranon Bursectomy, excision of suture material, packing(Right) - Paul Savage MD Surgeon Paul Savage MD Comb Tender none Estimated Blood Loss 3 Findings Consistent with Post-Op Diagnosis Specimens Culture olecranon bursa Drains None but iodoform packing placed Anesthesia Type General Complications none Disposition Accompanied Patient To Recovery: No Disposition: Recovery Room Indications 59-year-old male who scraped his elbow about a month ago and over the last 4 days developed increased swelling and pain in his elbow with erythema and aspirate in the office with 40 cc of purulent material out of the elbow bursa. Radiographs demonstrate drill holes from prior triceps repair and findings of previous insertion site of a bio composite anchor with no erosion around any of those areas that would suggest osteomyelitis. Description of Procedure Patient was placed under a general anesthetic and then positioned on a beanbag in a semilateral decubitus position to access to posterior right elbow. All lower extremities were well-padded. Patient did have marked abdominal obesity. Right elbow exam demonstrated a healed abrasion and erythematous elbow with erythema extending up posterior triceps. There was a recurrent olecranon bursa fluid collection. A pneumatic tourniquet was placed about the right upper extremity. The arm was elevated and the pneumatic tourniquet was raised to 250 mmHg. His prior scar was used for a posterior incision. Bloody purulent fluid was evacuated from the olecranon bursa. There was old suture material from the triceps repair exposed within the bursa tissue. There was no ruptured suture material. The triceps repair was intact. There was thickened scarred bursa tissue of the olecranon bursa noted. After culture was obtained the wound was copiously irrigated pulsatile lavage antibiotic solution with bacitracin. The e xposed suture material was all removed the bone holes with a suture was placed to the olecranon were curetted. The bone was cauterized. The olecranon bursectomy performed moving the scarred electron bursa tissue. Some of the superficial triceps tendon was debrided. The wound was further irrigated now with 3 more liters of antibiotic solution with bacitracin for a total of 6 L of irrigation. Wound was packed with outer form gauze and tail left out approximately. The wound was closed with 3-0 nylon vertical mattress sutures and sterile dressings were applied and a compressive bandage about the elbow in a sling. Tourniquet was let down patient normal capillary refill to extremity and tolerated the procedure well. I attest to the content of the Intraoperative Record and any orders documented therein. Any exceptions are noted below.
[2020-02-01] MEDS ORDERED: HYDROmorphone INJ 1 MG/ML SYRINGE ONE (11:25)
--- NOTE | 2020-02-01 12:00 | Anesthesiology Progress Note ---
Date of Service February 01, 2020 Anesthesia Post Procedure Vital Signs Vital Signs: Temp Pulse Pulse Resp BP Pulse Ox 02/01/20 11:53 36.2 C L 69 14 107/61 93 02/01/20 11:40 73 20 106/61 93 02/01/20 11:30 67 13 117/73 93 02/01/20 11:20 69 16 121/66 95 02/01/20 11:10 66 16 120/64 96 02/01/20 11:03 36.4 C L 70 16 137/75 95 02/01/20 07:55 36.6 C 68 16 120/80 94 01/31/20 23:31 37.7 C H 76 18 110/70 94 01/31/20 21:05 72 136/77 01/31/20 14:51 37 C 66 17 119/79 98 01/31/20 13:07 37 C 75 22 133/68 95 Pain Intensity Right Elbow: Pain Intensity: 3 Transfer of Care Handoff Completed per policy Notes Mental Status: alert / awake / arousable and participated in evaluation Patient Amnestic to Procedure: Yes Nausea / Vomiting: adequately controlled Pain: adequately controlled Airway Patency, RR, SpO2: stable & adequate BP & HR: stable & adequate Hydration State: stable & adequate Anesthetic Complications: no major complications apparent and Pt Satisfied with anesthetic care
[2020-02-01] MEDS ORDERED: HYDROmorphone INJ 0.5 MG/0.5 ML SYR IV PRN (12:19)
--- NOTE | 2020-02-01 14:09 | Hospitalist Progress Note ---
Date of Service February 01, 2020 Assessment & Plan (1) Olecranon bursitis: Presented with right olecranon septic bursitis status post needle aspiration of 40 mL of purulent fluid in the orthopedic office Now status post Right Elbow Incision and Drainage, Olecranon Bursectomy, excision of suture material, packing(Right) with orthopedic surgery on 01/31 Wound culture growing Staphylococcus species-sensitivities pending Continue IV vancomycin Continue pain control Right upper extremity in sling (2) Nausea & vomiting: With postoperative nausea and vomiting with a history of such secondary to anesthesia Give IV Zofran now Start IV fluids Advance diet as tolerated Scopolamine patch ordered as needed (3) Congestive heart failure: 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 A cardiac catheterization at that time showed no significant CAD Reports from previous anesthesia consultation show that he had a repeat echo 07/2017 with an EF that was recovered to 55% Patient states he recently saw his substance abuse prevention coordinator, Alma Gagnon, at [facility] and was told everything was "okay". -Continues to take carvedilol 12.5 twice daily, lisinopril 5, and spironolactone 25. He has persistent bilateral lower extremity edema that is mild -Hold spironolactone while having nausea and vomiting giving IV fluids Restart likely in the morning -Continue atorvastatin, aspirin is on hold for surgery can likely be restarted in the morning if okay with orthopedics (4) Diabetes mellitus, type 2: Patient typically takes insulin lispro 6 with meals Lantus 24 at night plus Metformin twice daily Pharmacy is consulted here Had hypoglycemia yesterday in the setting of infection Now improving glucose control Hemoglobin A1c is uncontrolled at 9.7% We will need more aggressive control and weight loss upon discharge (5) Hypertension: Blood pressures here controlled -Continue home carvedilol, lisinopril Holding home spironolactone as above for nausea/vomiting case of dehydration (6) Obesity: BMI elevated at 38.5 Needs weight loss counseling (7) Hyperlipidemia: Continue atorvastatin (8) DVT prophylaxis: SCDs Of note, he has a history of DVT after having a cast that was too tight he reports for an Achilles tendon rupture Would start Lovenox 40 mg SQ every 24 hours in the morning if okay with orthopedic surgery Disposition-continued stay Hospitalist service will continue to follow along Admission and Anticipated Discharge Date Admission Date: January 31, 2020 Subjective Patient seen shortly after returning from his right olecranon bursitis surgery and he was having nausea and vomiting. He reports having a history of post anesthesia nausea and vomiting. Other than that, he has no complaints. Denies chest pains. He remains on oxygen but is immediately postop. We reviewed his history at length and his is at the bedside. Review of Systems Review of Systems: All systems reviewed & are unremarkable except as noted in HPI & below Physical Exam Constitutional: WD/WN, vitals as above + obese Eyes: + anicteric sclerae Neck: trachea midline, no thyromegaly Respiratory: normal respiratory effort, lungs clear to auscultation Cardiovascular: RRR, no murmur, no edema Chest (Breasts): Chest: normal inspection of chest Gastrointestinal (Abdomen): normal bowel sounds, soft, nontender, no hepatosplenomegaly Musculoskeletal: Extremities: + extremities abnormal to inspection (Right upper extremity in sling with Rakesh wrap over the elbow not removed), no cyanosis and no clubbing Skin: no rashes, warm and dry Neurologic: moves all extremities and awake; no focal motor deficits Psychiatric: A+Ox3, euthymic affect Lymphatic: no lymphedema Results & Data Results & Data ([facility]) Vital Signs (Past 12 Hours) Vital Signs Temp Pulse Pulse Pulse Resp BP Pulse Ox 02/01/20 13:42 64 18 137/87 94 02/01/20 12:50 36.4 C L 66 16 127/88 93 02/01/20 12:15 36.4 C L 66 18 130/82 96 02/01/20 11:53 36.2 C L 69 14 107/61 93 02/01/20 11:40 73 20 106/61 93 02/01/20 11:30 67 13 117/73 93 02/01/20 11:20 69 16 121/66 95 02/01/20 11:10 66 16 120/64 96 02/01/20 11:03 36.4 C L 70 16 137/75 95 02/01/20 07:55 36.6 C 68 16 120/80 94 Laboratory Results 02/01/20 02/01/20 02/01/20 Range/Units 12:08 09:14 06:11 Creatinine (0.6-1.4) mg/dl Est Cr Clr Drug Dosing ml/min Est GFR ( Amer) Est GFR (Non-Af Amer) POC Glucose 157 H 153 H (70-99) mg/dl Estimat Average Glucose 232 mg/dl Hemoglobin A1c 9.7 H (4.5-5.6) % Cholesterol (0-200) mg/dl COVID-19 Eval Order SARS-CoV-2, RNA, NAAT (NEGATIVE) Blood Type Antibody Screen 02/01/20 02/01/20 01/31/20 Range/Units 06:11 05:59 Unknown Creatinine 0.78 (0.6-1.4) mg/dl Est Cr Clr Drug Dosing 144.9 ml/min Est GFR ( Amer) 116.1 Est GFR (Non-Af Amer) 100.2 POC Glucose 140 H (70-99) mg/dl Estimat Average Glucose mg/dl Hemoglobin A1c (4.5-5.6) % Cholesterol 126 (0-200) mg/dl COVID-19 Eval Order SARS-CoV-2, RNA, NAAT NEGATIVE (NEGATIVE) Blood Type Antibody Screen 01/31/20 01/31/20 01/31/20 Range/Units Unknown 23:53 20:32 Creatinine (0.6-1.4) mg/dl Est Cr Clr Drug Dosing ml/min Est GFR ( Amer) Est GFR (Non-Af Amer) POC Glucose 169 H 213 H (70-99) mg/dl Estimat Average Glucose mg/dl Hemoglobin A1c (4.5-5.6) % Cholesterol (0-200) mg/dl COVID-19 Eval Order Covid19 IDNow [facility] SARS-CoV-2, RNA, NAAT (NEGATIVE) Blood Type Antibody Screen 01/31/20 01/31/20 Range/Units 17:42 13:48 Creatinine (0.6-1.4) mg/dl Est Cr Clr Drug Dosing ml/min Est GFR ( Amer) Est GFR (Non-Af Amer) POC Glucose 231 H (70-99) mg/dl Estimat Average Glucose mg/dl Hemoglobin A1c (4.5-5.6) % Cholesterol (0-200) mg/dl COVID-19 Eval Order SARS-CoV-2, RNA, NAAT (NEGATIVE) Blood Type O Positive Antibody Screen NEGATIVE Wound culture with Staphylococcus species-sensitivities pending Blood cultures-no growth to date PG Care Time/CCT Total # of Minutes Spent Total Time Spent with Patient: Total time spent is greater than 50% in coordination of care (as documented) at patient's floor/unit and/or counseling patient: Coding Level of Care Code 97609 Subseq Hosp Care Lvl 3 Diagnoses Olecranon bursitis M70.20 Nausea & vomiting R11.2 Congestive heart failure I50.9 Diabetes mellitus, type 2 E11.9 Hypertension I10 Obesity E66.9 Hyperlipidemia E78.5 DVT prophylaxis Z29.9
[2020-02-01] MEDS ORDERED: SODIUM CHLORIDE 0.9% 1000ML 1,000 ML IV SCH (14:30)
[2020-02-01] MEDS ORDERED: SCOPOLAMINE 1.5 MG TDSY TD PRN (14:30)
[2020-02-01] MEDS ORDERED: Nursing to Pharmacy Communication SCH (16:00)
[2020-02-01] MEDS: CHECK SCOPOLAMINE PATCH PLACEMENT SCH (16:06)
[2020-02-01] MEDS: oxyCODONE HCL IR 5 MG TAB (IMMEDIATE RELEASE) PO PRN ×2 (16:59→22:27)
[2020-02-01] MEDS: ACETAMINOPHEN 500 MG TAB PO PRN (18:23)
[2020-02-01] MEDS ORDERED: NURSING DECISION MEDICATION ONE (20:42)
[2020-02-01] MEDS ORDERED: COUGH DROP (SUGAR FREE) LOZ 24 LOZ/1 BOX BUCCAL PRN (20:45)
[2020-02-01] MEDS: ATORVASTATIN 40 MG TAB PO SCH (20:50)
[2020-02-01] MEDS: INSULIN GLARGINE SOLOSTAR 100 UNITS/ML 3 ML PEN SC SCH (21:35)
[2020-02-02] MEDS: CHECK SCOPOLAMINE PATCH PLACEMENT SCH ×3 (01:40→16:27)
[2020-02-02] MEDS: ACETAMINOPHEN 500 MG TAB PO PRN ×3 (03:43→21:13)
[2020-02-02] MEDS ORDERED: VANCOMYCIN TROUGH ONE (05:30)
[2020-02-02] MEDS: VANCOMYCIN HCL 1,500 MG in SODIUM CHLORIDE 0.9% 500 ML IV SCH ×2 (05:41→18:21)
[2020-02-02 06:17] LABS: Hematocrit (blood only) 41.7 % (42-52); Hemoglobin 13.4 g/dL (14.0-18.0); Mean Corpuscular Hemoglobin 32.1 pg (25-34); Mean Corpuscular Hgb Conc 32.1 g/dL (32-36); Mean Corpuscular Volume 99.8 fL (80-100); Mean Platelet Volume 11.2 fL (7.4-10.4); Platelet Count 223 K/uL (130-400); RDW Coefficient of Variation 13.3 % (11.5-14.5); RDW Standard Deviation 48.5 fL (36.4-46.3); Red Blood Count 4.18 M/uL (4.7-6.1); White Blood Count 8.55 K/uL (4.8-10.8)
[2020-02-02 06:49] LABS: BUN Creatinine Ratio 15.5 (10-20); Calcium 8.6 mg/dl (8.5-10.1); Creatinine Clr Calc Pharmacy 152.7 ml/min; Est GFR (African American) 118.7; Est GFR (Non-African American) 102.4; Potassium 3.8 mmol/L (3.5-5.1)
[2020-02-02] MEDS: carvediloL 12.5 MG TAB PO SCH ×2 (07:58→21:13)
[2020-02-02] MEDS: lisinopril 5 MG TAB PO SCH (07:58)
[2020-02-02] MEDS: CEROVITE ADV FORMULA TAB PO SCH (07:58)
--- NOTE | 2020-02-02 08:24 | Pharmacy Report ---
Pharmacy Abx Dose Short Note - Date of Service February 02, 2020 - Assessment & Plan Assessment 59 year old M ordered vancomycin IV for right septic olecranon bursitis Right elbow cultures pending Blood cultures negative to date Day # 3 of antimicrobial therapy. Plan Vancomycin * Trough level of 17.3 mcg/mL is therapeutic; however, vancomycin not quite to steady state and additional vancomycin accumulation is likely secondary to BMI > 35. Will empirically lengthen dosing interval to allow for additional vanco clearance to prevent supratherapeutic trough level. * Continue dose of 1500 mg (11.6 mg/kg) but increase dosing interval from Q10hrs to Q12hrs * Goal trough level for SST : 10 to 20 mcg/mL depending on c/s * Trough or random level ordered for: 02/04/20 @ 1125 Pharmacy will continue to follow and will adjust dose/frequency as necessary. Thank you.
[2020-02-02] MEDS: INSULIN ASPART 100 UNITS/ML 3 ML PEN SC SCH ×4 (08:29→21:15)
--- NOTE | 2020-02-02 12:05 | Hospitalist Progress Note ---
Date of Service February 02, 2020 Assessment & Plan (1) Olecranon bursitis: Presented with right olecranon septic bursitis status post needle aspiration of 40 mL of purulent fluid in the orthopedic office and sent to the ER for admission Now status post Right Elbow Incision and Drainage, Olecranon Bursectomy, excision of suture material, packing(Right) with orthopedic surgery on 01/31 Postoperative care as per orthopedic surgery Wound culture growing Staphylococcus lugdunensis, pansensitive Continue IV vancomycin for now and can convert to p.o. 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 A cardiac catheterization at that time showed no significant CAD Reports from previous anesthesia consultation show that he had a repeat echo 07/2017 with an EF that was recovered to 55% Patient states he recently saw his mechanics handyman, Alma Gagnon, at [facility] and was told everything was "okay". -Continues to take carvedilol 12.5 twice daily, lisinopril 5, and spironolactone 25. He has persistent bilateral lower extremity edema that is mild -Okay to restart spironolactone today as his nausea and vomiting has resolved -Continue atorvastatin, aspirin is on hold for surgery can likely be restarted in the morning if okay with orthopedics-awaiting to hear back from orthopedics (4) Diabetes mellitus, type 2: Patient typically takes insulin lispro 6 with meals Lantus 22 at night plus Metformin twice daily Pharmacy is consulted here Had hyperglycemia yesterday in the setting of infection Now improving glucose control but remains hyperglycemic at times Hemoglobin A1c is uncontrolled at 9.7% We will need more aggressive control and weight loss upon discharge (5) Hypertension: Blood pressures here controlled -Continue home carvedilol, lisinopril Restart home spironolactone as above (6) Obesity: BMI elevated at 38.5 Needs weight loss counseling (7) Hyperlipidemia: Continue atorvastatin (8) DVT prophylaxis: SCDs Of note, he has a history of DVT after having a cast that was too tight he reports for an Achilles tendon rupture Would start Lovenox 40 mg SQ every 24 hours in the morning if okay with orthopedic surgery-awaiting to hear back Disposition-continued stay Hospitalist service will continue to follow along Admission and Anticipated Discharge Date Admission Date: January 31, 2020 Subjective Patient reports pain in the right elbow and feels the dressing is wrapped too tightly. Otherwise no further nausea or vomiting. He tolerated breakfast today. No abdominal pain, no constipation or diarrhea. No chest pain or shortness of breath. I discussed his case with orthopedic PA Review of Systems Review of Systems: All systems reviewed & are unremarkable except as noted in HPI & below Physical Exam Constitutional: WD/WN, vitals as above + obese Eyes: + anicteric sclerae Neck: trachea midline, no thyromegaly Respiratory: normal respiratory effort, lungs clear to auscultation Cardiovascular: RRR, no murmur, no edema Chest (Breasts): Chest: normal inspection of chest Gastrointestinal (Abdomen): normal bowel sounds, soft, nontender, no hepatosplenomegaly Musculoskeletal: Extremities: + extremities abnormal to inspection (Right upper extremity in sling with Rakesh wrap over the elbow not removed, 2+ radial and ulnar pulses, neurovascularly intact in the right hand, can move all fingers and wrist), no cyanosis and no clubbing Skin: no rashes, warm and dry Neurologic: moves all extremities and awake; no focal motor deficits Psychiatric: A+Ox3, euthymic affect Lymphatic: no lymphedema Results & Data Results & Data ([facility]) Vital Signs (Past 12 Hours) Vital Signs Temp Pulse Resp BP Pulse Ox 02/02/20 11:58 37.5 C 80 20 102/64 92 02/02/20 07:06 37.0 C 71 16 101/69 91 02/02/20 03:41 37.0 C 68 16 113/70 92 02/02/20 00:41 37.1 C 63 16 109/69 93 Laboratory Results 02/02/20 02/02/20 02/02/20 Range/Units 11:55 07:55 05:25 WBC 8.55 (4.8-10.8) K/uL RBC 4.18 L (4.7-6.1) M/uL Hgb 13.4 L (14.0-18.0) g/dL Hct 41.7 L (42-52) % MCV 99.8 (80-100) fL MCH 32.1 (25-34) pg MCHC 32.1 (32-36) g/dL RDW Std Deviation 48.5 H (36.4-46.3) fL RDW Coeff of Brain 13.3 (11.5-14.5) % Plt Count 223 (130-400) K/uL MPV 11.2 H (7.4-10.4) fL Sodium (136-145) mmol/L Potassium (3.5-5.1) mmol/L Chloride (98-107) mmol/L Carbon Dioxide (21-32) mmol/L Anion Gap (3-11) BUN (7-18) mg/dl Creatinine (0.6-1.4) mg/dl Est Cr Clr Drug Dosing ml/min Est GFR ( Amer) Est GFR (Non-Af Amer) BUN/Creatinine Ratio (10-20) Glucose (70-99) mg/dl POC Glucose 200 H 161 H (70-99) mg/dl Calcium (8.5-10.1) mg/dl Vancomycin Trough (See Comment) mcg/ml 02/02/20 02/02/20 02/01/20 Range/Units 05:25 05:25 20:43 WBC (4.8-10.8) K/uL RBC (4.7-6.1) M/uL Hgb (14.0-18.0) g/dL Hct (42-52) % MCV (80-100) fL MCH (25-34) pg MCHC (32-36) g/dL RDW Std Deviation (36.4-46.3) fL RDW Coeff of Brain (11.5-14.5) % Plt Count (130-400) K/uL MPV (7.4-10.4) fL Sodium 136 (136-145) mmol/L Potassium 3.8 (3.5-5.1) mmol/L Chloride 104 (98-107) mmol/L Carbon Dioxide 27 (21-32) mmol/L Anion Gap 5.0 (3-11) BUN 11 (7-18) mg/dl Creatinine 0.74 (0.6-1.4) mg/dl Est Cr Clr Drug Dosing 152.7 ml/min Est GFR ( Amer) 118.7 Est GFR (Non-Af Amer) 102.4 BUN/Creatinine Ratio 15.5 (10-20) Glucose 155 H (70-99) mg/dl POC Glucose 182 H (70-99) mg/dl Calcium 8.6 (8.5-10.1) mg/dl Vancomycin Trough 17.3 (See Comment) mcg/ml 02/01/20 02/01/20 Range/Units 17:32 12:08 WBC (4.8-10.8) K/uL RBC (4.7-6.1) M/uL Hgb (14.0-18.0) g/dL Hct (42-52) % MCV (80-100) fL MCH (25-34) pg MCHC (32-36) g/dL RDW Std Deviation (36.4-46.3) fL RDW Coeff of Brain (11.5-14.5) % Plt Count (130-400) K/uL MPV (7.4-10.4) fL Sodium (136-145) mmol/L Potassium (3.5-5.1) mmol/L Chloride (98-107) mmol/L Carbon Dioxide (21-32) mmol/L Anion Gap (3-11) BUN (7-18) mg/dl Creatinine (0.6-1.4) mg/dl Est Cr Clr Drug Dosing ml/min Est GFR ( Amer) Est GFR (Non-Af Amer) BUN/Creatinine Ratio (10-20) Glucose (70-99) mg/dl POC Glucose 215 H 157 H (70-99) mg/dl Calcium (8.5-10.1) mg/dl Vancomycin Trough (See Comment) mcg/ml Wound culture with Staphylococcus lugdunensis, pansensitive Blood cultures-no growth to date PG Care Time/CCT Total # of Minutes Spent Total Time Spent with Patient: Total time spent is greater than 50% in coordination of care (as documented) at patient's floor/unit and/or counseling patient: Coding Level of Care Code 96111 Subseq Hosp Care Lvl 2 Diagnoses Olecranon bursitis M70.20 Nausea & vomiting R11.2 Congestive heart failure I50.9 Diabetes mellitus, type 2 E11.9 Hypertension I10 Obesity E66.9 Hyperlipidemia E78.5 DVT prophylaxis Z29.9
[2020-02-02] MEDS ORDERED: SPIRONOLACTONE 25 MG TAB PO ONE (12:10)
[2020-02-02] MEDS: ENOXAPARIN INJ 40 MG/0.4 ML SYR SQ SCH (13:10)
[2020-02-02] MEDS: ASPIRIN 81 MG ECTAB PO SCH (13:11)
[2020-02-02] MEDS: ASCORBIC ACID 500 MG TAB PO SCH (13:11)
[2020-02-02] MEDS: THIAMINE HCL 100 MG TAB PO SCH (13:11)
[2020-02-02] MEDS ORDERED: KETOROLAC TROMETHAMINE 15 MG/ML VIAL IV ONE (13:36)
[2020-02-02] MEDS ORDERED: POLYETHYLENE (MIRALAX) 17 GM PACK PO PRN (13:36)
[2020-02-02] MEDS ORDERED: POLYETHYLENE (MIRALAX) 17 GM PACK PO STA (13:37)
[2020-02-02] MEDS ORDERED: KETOROLAC TROMETHAMINE 15 MG/ML VIAL IV PRN (13:58)
--- NOTE | 2020-02-02 13:58 | Orthopedic Progress Note ---
Date of Service February 02, 2020 Assessment & Plan (1) Septic bursitis: Postop day 1 status post I&D of septic right olecranon bursitis. Cultures showing MSSA that was from an aspirate in the office. Current part of culture showing staph aureus. Currently on vancomycin. Patient is currently on vancomycin. Discussed switching his antibiotics with Dr. Villafana. Possibly plan for use of IV doxycycline. I will discuss this with [facility] physician. We will write for a dose of MiraLAX today and then as needed daily to help with his constipation. I will also add a stool softener as well. With his hesitancy to use the narcotics, Toradol 15 mg IV every 6 hours will be added for 24 hours. Plan to recheck a CBC and a BMP tomorrow. Current pain regimen including Tylenol, oxycodone, morphine sulfate. Discussed DVT prophylaxis with Dr. Villafana. Patient at higher risk for DVT with history of DVT in the past. Aspirin p.o. daily restarted and enoxaparin 40 mg subcu daily also added. Plan for home use of Lovenox likely for 2 weeks at the minimum. Continue daily dressing changes. Hopefully remainder of packing will be removed tomorrow. We will consider making him n.p.o. after midnight tonight in case worsening of drainage or erythema for repeat washout. Admission and Anticipated Discharge Date Admission Date: January 31, 2020 Supervising Physician Co-Signing Physician Notes Patient seen and examined. He is resting comfortably. Pain in his elbow is well controlled. Preoperative cultures obtained in the office were growing St aph lugdenensis (wooten-sensitive); intraoperative cultures are growing Staphylococcus, but not further speciated yet. He had some moderate drainage from his wound during dressing change and packing removal today. We will plan to keep him n.p.o. after midnight, and reexamine tomorrow for potential repeat washout. Subjective Postop day 1 status post I&D right septic olecranon bursa. Patient sitting up in bed watching TV. States he has been having shooting pains off and on in the elbow but is otherwise feeling okay. No bowel movement since Monday. Passing flatus. Concerned about being constipated. He has been holding off using strong narcotics partly for that reason. No other complaints at this time. Physical Exam Physical Exam: Dressings removed. To knees with moderate erythema around the wound and lateral portion of the elbow. He is nontender on palpation of the forearm and upper arm to the axilla. Moderately tender on palpation over the elbow itself. If 10 inches of packing was removed. Moderate drainage during that time that was mostly bloody. No purulence noted. No foul odor. Wound redressed with Adaptic, 4 x 4's, Kerlix, Rakesh wrap. Good range of motion of the right wrist and hand fingers. Sensations intact. Cap refills less than 2 seconds. Results & Data ([facility]) Vital Signs (Past 12 Hours) Vital Signs Temp Pulse Resp BP Pulse Ox 02/02/20 11:58 37.5 C 80 20 102/64 92 02/02/20 07:06 37.0 C 71 16 101/69 91 02/02/20 03:41 37.0 C 68 16 113/70 92
[2020-02-02] MEDS: DOCUSATE SODIUM 100 MG CAP PO SCH (21:13)
[2020-02-02] MEDS: ATORVASTATIN 40 MG TAB PO SCH (21:13)
[2020-02-02] MEDS: INSULIN GLARGINE SOLOSTAR 100 UNITS/ML 3 ML PEN SC SCH (21:14)
[2020-02-02] MEDS: oxyCODONE HCL IR 5 MG TAB (IMMEDIATE RELEASE) PO PRN (21:14)
[2020-02-03] MEDS: CHECK SCOPOLAMINE PATCH PLACEMENT SCH ×3 (00:02→15:12)
[2020-02-03] MEDS: VANCOMYCIN HCL 1,500 MG in SODIUM CHLORIDE 0.9% 500 ML IV SCH (05:50)
[2020-02-03] MEDS: ACETAMINOPHEN 500 MG TAB PO PRN (05:51)
[2020-02-03 06:15] LABS: Basophils # (auto) 0.01 K/uL (0-0.2); Basophils % (auto) 0.1 %; Eosinophils # (auto) 0.22 K/uL (0-0.5); Eosinophils % (auto) 3.2 %; Hematocrit (blood only) 42.3 % (42-52); Hemoglobin 13.5 g/dL (14.0-18.0); Immature Granulocytes # (auto) 0.01 K/uL (0.00-0.02); Immature Granulocytes % (auto) 0.1 %; Lymphocytes # (auto) 1.23 K/uL (1.2-3.4); Lymphocytes % (auto) 17.7 %; Mean Corpuscular Hemoglobin 31.8 pg (25-34); Mean Corpuscular Hgb Conc 31.9 g/dL (32-36); Mean Corpuscular Volume 99.5 fL (80-100); Monocytes # (auto) 0.78 K/uL (0.11-0.59); Monocytes % (auto) 11.3 %; Neutrophils # (auto) 4.68 K/uL (1.4-6.5); Neutrophils % (auto) 67.6 %; Platelet Count 238 K/uL (130-400); RDW Coefficient of Variation 13.2 % (11.5-14.5); RDW Standard Deviation 48.1 fL (36.4-46.3); Red Blood Count 4.25 M/uL (4.7-6.1); White Blood Count 6.93 K/uL (4.8-10.8)
[2020-02-03] MEDS ORDERED: Nursing to Pharmacy Communication SCH ×3 (07:00→10:15)
[2020-02-03] MEDS ORDERED: INSULIN ASPART 100 UNITS/ML 3 ML PEN SC SCH (07:00)
--- NOTE | 2020-02-03 07:04 | Communication Note ---
Date of Service: February 03, 2020 Nursing concerned about his continued lethargy
[2020-02-03 07:06] LABS: BUN Creatinine Ratio 13.9 (10-20); Calcium 8.7 mg/dl (8.5-10.1); Creatinine Clr Calc Pharmacy 139.5 ml/min; Est GFR (African American) 114.3; Est GFR (Non-African American) 98.7
[2020-02-03] MEDS: lisinopril 5 MG TAB PO SCH (08:31)
[2020-02-03] MEDS: THIAMINE HCL 100 MG TAB PO SCH (08:31)
[2020-02-03] MEDS: carvediloL 12.5 MG TAB PO SCH ×2 (08:31→21:13)
[2020-02-03] MEDS: DOCUSATE SODIUM 100 MG CAP PO SCH ×2 (08:31→21:13)
[2020-02-03] MEDS: CEROVITE ADV FORMULA TAB PO SCH (08:31)
[2020-02-03] MEDS: ASCORBIC ACID 500 MG TAB PO SCH (08:31)
[2020-02-03] MEDS: ASPIRIN 81 MG ECTAB PO SCH ×2 (08:32→10:35)
[2020-02-03] MEDS: SPIRONOLACTONE 25 MG TAB PO SCH (08:32)
--- NOTE | 2020-02-03 10:16 | Orthopedic Progress Note ---
Date of Service February 03, 2020 Assessment & Plan (1) Septic bursitis: Postop day 1 status post I&D of septic right olecranon bursitis. Cultures showing MSSA that was from an aspirate in the office. Current part of culture showing staph aureus. Currently on vancomycin. Patient is currently on vancomycin. Discussed switching his antibiotics with Dr. Villafana. Possibly plan for use of IV doxycycline today. Patient states no bowel movement yet but feels like he will be having one this a.m. Continues to pass flatus. With his hesitancy to use the narcotics, Toradol 15 mg IV every 6 hours will be added for 24 hours. Current pain regimen including Tylenol, oxycodone, morphine sulfate. Discussed DVT prophylaxis with Dr. Villafana. Patient at higher risk for DVT with history of DVT in the past. Aspirin p.o. daily restarted and enoxaparin 40 mg subcu daily also added. Plan for home use of Lovenox likely for 2 weeks at the minimum. Continue daily dressing changes. Removal of remainder of packing tomorrow. Restart diet. Wound improving overall with much less drainage. No need for second washout today. Admission and Anticipated Discharge Date Admission Date: January 31, 2020 Subjective Postop day 2 Patient sitting up in bed watching TV. Pain controlled. Now mentioning he has some slight numbness and tingling in his fourth and fifth fingers the operative side. States this is not new. No other complaints at this time. Physical Exam Physical Exam: Dressings removed. She states that this was the original dressing that I had done yesterday and did not need to reinforce. There is a small amount of bloody drainage noted on the Rakesh wrap. Patient has less erythema around the elbow today but there still is a central portion that is over the lateral elbow and near the incision continues. 20 inches of packing were removed. Minimal drainage noted at this time. Wound redressed with Adaptic, 4 x 4's, Kerlix, Rakesh wrap. Results & Data ([facility]) Vital Signs (Past 12 Hours) Vital Signs Temp Pulse Resp BP Pulse Ox 02/03/20 06:58 36.4 C L 66 16 131/82 94 02/02/20 23:43 36.9 C 64 16 108/69 95 Laboratory Results Laboratory Results WBC 6.93 K/uL (4.8-10.8) 02/03/20 05:16 RBC 4.25 M/uL (4.7-6.1) L 02/03/20 05:16 Hgb 13.5 g/dL (14.0-18.0) L 02/03/20 05:16 Hct 42.3 % (42-52) 02/03/20 05:16 MCV 99.5 fL (80-100) 02/03/20 05:16 MCH 31.8 pg (25-34) 02/03/20 05:16 MCHC 31.9 g/dL (32-36) L 02/03/20 05:16 RDW Std Deviation 48.1 fL (36.4-46.3) H 02/03/20 05:16 RDW Coeff of Brain 13.2 % (11.5-14.5) 02/03/20 05:16 Plt Count 238 K/uL (130-400) 02/03/20 05:16 MPV 11.0 fL (7.4-10.4) H 02/03/20 05:16 Immature Gran % (Auto) 0.1 % 02/03/20 05:16 Neut % (Auto) 67.6 % 02/03/20 05:16 Lymph % (Auto) 17.7 % 02/03/20 05:16 Barton % (Auto) 11.3 % 02/03/20 05:16 Eos % (Auto) 3.2 % 02/03/20 05:16 Baso % (Auto) 0.1 % 02/03/20 05:16 Neut # (Auto) 4.68 K/uL (1.4-6.5) 02/03/20 05:16 Lymph # (Auto) 1.23 K/uL (1.2-3.4) 02/03/20 05:16 Barton # (Auto) 0.78 K/uL (0.11-0.59) H 02/03/20 05:16 Eos # (Auto) 0.22 K/uL (0-0.5) 02/03/20 05:16 Baso # (Auto) 0.01 K/uL (0-0.2) 02/03/20 05:16 Immature Gran # (Auto) 0.01 K/uL (0.00-0.02) 02/03/20 05:16 ESR 61 mm/hr (0-14) H 01/31/20 12:13 PT 10.8 Seconds (9.0-12.0) 01/31/20 12:13 INR 1.0 (0.9-1.1) 01/31/20 12:13 Sodium 141 mmol/L (136-145) 02/03/20 05:16 Potassium 4.0 mmol/L (3.5-5.1) 02/03/20 05:16 Chloride 107 mmol/L (98-107) 02/03/20 05:16 Carbon Dioxide 29 mmol/L (21-32) 02/03/20 05:16 Anion Gap 5.0 (3-11) 02/03/20 05:16 BUN 11 mg/dl (7-18) 02/03/20 05:16 Creatinine 0.81 mg/dl (0.6-1.4) 02/03/20 05:16 Est Cr Clr Drug Dosing 139.5 ml/min 02/03/20 05:16 Est GFR ( Amer) 114.3 02/03/20 05:16 Est GFR (Non-Af Amer) 98.7 02/03/20 05:16 BUN/Creatinine Ratio 13.9 (-20) 02/03/20 05:16 Glucose 138 mg/dl (70-99) H 02/03/20 05:16 POC Glucose 142 mg/dl (70-99) H 02/03/20 06:59 Estimat Average Glucose 232 mg/dl 02/01/20 06:11 Hemoglobin A1c 9.7 % (4.5-5.6) H 02/01/20 06:11 Calcium 8.7 mg/dl (8.5-10.1) 02/03/20 05:16 Total Bilirubin 0.6 mg/dl (0.2-1) 01/31/20 12:13 AST 32 U/L (15-37) 01/31/20 13:10 ALT 58 U/L (12-78) 01/31/20 12:13 Alkaline Phosphatase 113 U/L (45-117) 01/31/20 12:13 C-Reactive Protein 8.91 mg/dl (0-0.29) H 01/31/20 12:13 Total Protein 7.5 gm/dl (6.4-8.2) 01/31/20 12:13 Albumin 3.1 gm/dl (3.4-5.0) L 01/31/20 12:13 Globulin 4.4 gm/dl (2.5-4.0) H 01/31/20 12:13 Albumin/Globulin Ratio 0.7 (0.9-2) L 01/31/20 12:13 Cholesterol 126 mg/dl (0-200) 02/01/20 06:11 Vancomycin Trough 17.3 mcg/ml (See Comment) 02/02/20 05:25 [facility]/20 Unknown SARS-CoV-2, RNA, NAAT NEGATIVE (NEGATIVE) 01/31/20 Unknown Blood Type O Positive 01/31/20 13:48 Antibody Screen NEGATIVE 01/31/20 13:48
[2020-02-03] MEDS ORDERED: DOXYCYCLINE HYCLATE 100 MG in DEXTROSE 5% 100 ML IV SCH (11:30)
--- NOTE | 2020-02-03 12:23 | Pharmacy Report ---
Pharmacy Glycemic Short Note 2 - Date of Service February 03, 2020 - Glycemic Short BSG Results (Last 24 hours): OUTPATIENT ANTIDIABETIC REGIMEN: * Lantus 22 units qPM + Humalog 6 units TIDM + Metformin 500 mg BIDM * HbA1c = 9.7% 02/01/2020 ASSESSMENT: * Samuel is a 59 yo M admitted on 01/30 for elbow bursitis. His HbA1c shows poor outpatient control of T2DM on insulin + metformin therapy. Pharmacy was consulted for glycemic management on 01/31/2020. * Patient received 55 units of insulin yesterday * 22 units basal + 33 units bolus * BSGs were uncontrolled yesterday: [phone] mg/dL * Fasting BSG this AM was 142 mg/dL. Patient was NPO this morning for possible washout of elbow but has since been ordered a diet. * No changes to basal regimen * Lunchtime BSG was 136 mg/dL * No changes to bolus regimen PLAN FOR INPATIENT GLYCEMIC CONTROL: * Hold outpatient oral diabetes medications * Basal insulin * Lantus 22 units SQ HS * Bolus insulin * NovoLog per scale ACHS or Q6hrs while NPO * Goal Range: Low 110 mg/dL - High 140 mg/dL * Correction Factor: 20 mg/dL/unit * Nutritional / Prandial insulin per carb ratio of 1 unit per 7 grams CHO consumed PLAN FOR DISCHARGE: * HbA1c was 9.7% this admission.
[2020-02-03] MEDS: INSULIN ASPART 100 UNITS/ML 3 ML PEN SC SCH ×3 (12:27→21:19)
[2020-02-03] MEDS: ENOXAPARIN INJ 40 MG/0.4 ML SYR SQ SCH (14:12)
--- NOTE | 2020-02-03 14:26 | Hospitalist Progress Note ---
Date of Service February 03, 2020 Assessment & Plan (1) Olecranon bursitis: Presented with right olecranon septic bursitis status post needle aspiration of 40 mL of purulent fluid in the orthopedic office and sent to the ER for admission Now status post Right Elbow Incision and Drainage, Olecranon Bursectomy, excision of suture material, packing(Right) with orthopedic surgery on 01/31 Postoperative care as per orthopedic surgery Wound culture growing Staphylococcus lugdunensis, pansensitive Transitioned from vancomycin to doxycycline 02/02 Continue pain control Right upper extremity in sling (2) Nausea & vomiting: With postoperative nausea and vomiting with a history of such secondary to anesthesia-now resolved (3) Congestive heart failure: Chronic CHF with preserved EF 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 -Continues to take carvedilol 12.5 twice daily, lisinopril 5, and spironolactone 25. He has persistent bilateral lower extremity edema that is mild -Continue spironolactone, atorvastatin, aspirin (4) Diabetes mellitus, type 2: Patient typically takes insulin lispro 6 with meals Lantus 22 at night plus Metformin twice daily Pharmacy is consulted here Had hyperglycemia yesterday in the setting of infection Now improving glucose control but remains hyperglycemic at times Hemoglobin A1c is uncontrolled at 9.7% We will need more aggressive control and weight loss upon discharge (5) Hypertension: Blood pressures here controlled -Continue home carvedilol, lisinopril Restart home spironolactone as above (6) Obesity: BMI elevated at 38.5 Needs weight loss counseling (7) Hyperlipidemia: Continue atorvastatin (8) DVT prophylaxis: SCDs, Lovenox Of note, he has a history of DVT after having a cast that was too tight he reports for an Achilles tendon rupture Disposition-likely dc tomorrow. Hospitalists will sign off at this time. Please call with any questions or concerns Admission and Anticipated Discharge Date Admission Date: January 31, 2020 Subjective Mr Potts has no complaints. Had his dressing changed by ortho this morning. ROS Constitutional: no chills, aches, sweats or fever Respiratory: no sob,cough, sputum, or wheezing Cardiac: no chest pain, palpitations, edema, orthopnea or lightheadedness GI: no abdominal pain, nausea, vomiting, diarrhea or constipation : no dysuria or hesitancy Extremities: no joint pain or weakness Skin: no rash All other systems reviewed and negative Physical Exam Physical Exam: General: no distress Eyes: normal inspection, PERLL Respiratory: chest non tender, clear to auscultation, normal breath sounds, no respiratory distress, no accessory muscle use Cardiac: regular rate and rhythm, no rub or gallop, no murmur, no edema, no jvd GI/: active bowel sounds, no abd pain or tenderness, soft, non distended Extremities: normal range of motion, normal strength, non tender Neuro/Psych: alert and oriented x 3, normal mood and affect Skin: normal color, dry Results & Data Results & Data ([facility]) Vital Signs (Past 12 Hours) Vital Signs Temp Pulse Resp BP Pulse Ox 02/03/20 06:58 36.4 C L 66 16 131/82 94 PG Care Time/CCT Total # of Minutes Spent Total Time Spent with Patient: Total time spent is greater than 50% in coordination of care (as documented) at patient's floor/unit and/or counseling patient: Coding Level of Care Code 50204 Subseq Hosp Care Lvl 2 Diagnoses Olecranon bursitis M70.20 Nausea & vomiting R11.2 Congestive heart failure I50.9 Diabetes mellitus, type 2 E11.9 Hypertension I10 Obesity E66.9 Hyperlipidemia E78.5 DVT prophylaxis Z29.9
[2020-02-03] MEDS ORDERED: diphenhydrAMINE 50 MG/ML VIAL IV PRN (15:57)
[2020-02-03] MEDS: ceFAZolin 2000MG 2,000 MG/15 ML SYR IV SCH (17:24)
[2020-02-03] MEDS: ATORVASTATIN 40 MG TAB PO SCH (21:13)
[2020-02-03] MEDS: INSULIN GLARGINE SOLOSTAR 100 UNITS/ML 3 ML PEN SC SCH (21:18)
[2020-02-04] MEDS: CHECK SCOPOLAMINE PATCH PLACEMENT SCH ×3 (00:08→14:13)
[2020-02-04] MEDS: ceFAZolin 2000MG 2,000 MG/15 ML SYR IV SCH ×2 (00:08→07:53)
[2020-02-04] MEDS ORDERED: VANCOMYCIN TROUGH ONE (05:30)
[2020-02-04] MEDS: DOCUSATE SODIUM 100 MG CAP PO SCH (07:46)
[2020-02-04] MEDS: CEROVITE ADV FORMULA TAB PO SCH (07:46)
[2020-02-04] MEDS: lisinopril 5 MG TAB PO SCH (07:47)
[2020-02-04] MEDS: THIAMINE HCL 100 MG TAB PO SCH (07:47)
[2020-02-04] MEDS: ASCORBIC ACID 500 MG TAB PO SCH (07:47)
[2020-02-04] MEDS: ASPIRIN 81 MG ECTAB PO SCH (07:48)
[2020-02-04] MEDS: SPIRONOLACTONE 25 MG TAB PO SCH (07:48)
[2020-02-04] MEDS: carvediloL 12.5 MG TAB PO SCH (08:22)
[2020-02-04] MEDS: INSULIN ASPART 100 UNITS/ML 3 ML PEN SC SCH ×2 (08:42→12:45)
--- NOTE | 2020-02-04 12:05 | Pharmacy Report ---
Pharmacy Glycemic Short Note 2 - Date of Service February 04, 2020 - Glycemic Short BSG Results (Last 24 hours): 02/03/20 02/03/20 02/04/20 17:21 20:39 08:02 POC Glucose 263 H 190 H 154 H OUTPATIENT ANTIDIABETIC REGIMEN: * Lantus 22 units qPM + Humalog 6 units TIDM + Metformin 500 mg BIDM * HbA1c = 9.7% 02/01/2020 ASSESSMENT: 02/03: * Samuel received 40 units of insulin yesterday: * 22 units basal + 18 units bolus * BSGs were: [phone] mg/dL * Fasting BSG this AM was 154 mg/dL. * Based on recent increase in A1c, will increase basal dose by 10% this evening * Lunchtime BSG was 210 mg/dL. * Will tighten CF/CR to reflect weight/stress of 3. 02/02: * Samuel is a 59 yo M admitted on 01/30 for elbow bursitis. His HbA1c shows poor outpatient control of T2DM on insulin + metformin therapy. Pharmacy was consulted for glycemic management on 01/31/2020. * Patient received 55 units of insulin yesterday * 22 units basal + 33 units bolus * BSGs were uncontrolled yesterday: [phone] mg/dL * Fasting BSG this AM was 142 mg/dL. Patient was NPO this morning for possible washout of elbow but has since been ordered a diet. * No changes to basal regimen * Lunchtime BSG was 136 mg/dL * No changes to bolus regimen PLAN FOR INPATIENT GLYCEMIC CONTROL: * Hold outpatient oral diabetes medications * Basal insulin - increased * Lantus 24 units SQ HS * Bolus insulin - tightened * NovoLog per scale ACHS or Q6hrs while NPO * Goal Range: Low 110 mg/dL - High 140 mg/dL * Correction Factor: 15 mg/dL/unit * Nutritional / Prandial insulin per carb ratio of 1 unit per 5 grams CHO consumed PLAN FOR DISCHARGE: * HbA1c was 9.7% this admission. This has significantly worsened since previous data which shows an A1c of 6.8% from August 2018. * Recommend titrating Metformin to goal dose of 1000 mg PO BIDM. This can be achieved via 500 mg increases every week until the dose is 1000 mg PO BIDM. Vitamin B12 supplementation may be necessary with jail Metformin use. * Recommend increasing Lantus to 24 units SC HS and Novolog to 7 units TIDM. Patient should SMBG 4 x per day for the next several weeks to monitor for hypoglycemia. He should closely follow up with outpatient provider regarding T2DM. * Recommend lifestyle changes such as improved diet and exercise.
[2020-02-04] MEDS: ENOXAPARIN INJ 40 MG/0.4 ML SYR SQ SCH (12:51)
[2020-02-04] MEDS ORDERED: cefTRIAXone SODIUM 2,000 MG in DEXTROSE 5% 50 ML IV ONE (14:00)
--- NOTE | 2020-02-04 14:09 | Orthopedic Progress Note ---
Date of Service February 04, 2020 Assessment & Plan (1) Olecranon bursitis: Postop day 3 status post septic olecranon bursitis of the right elbow. Dr. Savage requesting 7 to 10 days of IV antibiotics. Patient tolerating cephalosporins well. Will change from Ancef to Rocephin and give test dose. Ultrasound IV placed. Case management has arranged for home health services versus [facility] pending on choice of patient. Plan for 10 days of IV antibiotics with lab work drawn 1 week from now. CBC with differential, BMP, ESR, CRP. Follow-up with Dr. Savage in 10 days. Addendum 1446; patient refusing Lovenox due to previous issues with blood thinners. Agreeable to aspirin p.o. twice daily. This was discussed with hospitalist service as well as Dr. Savage. Continue twice daily aspirin for 30 days. Resume meloxicam at home. Discussed with the patient about possible GI issues and to discontinue one of the medications if you begin having abdominal discomfort etc. Admission and Anticipated Discharge Date Admission Date: January 31, 2020 Subjective Postop day 3 status post irrigation and debridement of right olecranon septic bursitis. Patient sitting in his chair at the bedside. No complaints. Ultrasound guided IV placed by the IV team without problems. States that his elbow is feeling better today. No other complaints. Physical Exam Physical Exam: Dressing changed. Remainder of packing was removed last night by Dr. Savage. Less erythema today and less swelling. Patient having good range of motion of the right elbow. Intimal drainage noted on the dressing. Redressed. Cap refill less than 2 seconds. Moving all of his fingers well. Results & Data ([facility]) Vital Signs (Past 12 Hours) Vital Signs Temp Pulse Resp BP Pulse Ox 02/04/20 07:34 37.0 C 74 16 129/80 92
[2020-02-04] MEDS ORDERED: cefTRIAXone SODIUM 2,000 MG in DEXTROSE 5% 50 ML IV SCH (16:00)
[2020-02-04 16:24] VITALS: BP 122/82; PULSE 68; TEMP 99; O2SAT 95
[2020-02-04] MEDS ORDERED: INSULIN GLARGINE SOLOSTAR 100 UNITS/ML 3 ML PEN SC SCH (21:00)
--- NOTE | 2020-02-06 12:20 | Discharge Summary (DS) ---
DISCHARGE DIAGNOSIS: Right septic olecranon bursitis. SECONDARY DIAGNOSES: History of congestive heart failure, diabetes mellitus type 2, hypertension, history of deep vein thrombosis in the past. CONSULTS: Dr. Mike Fishman. COMPLICATIONS: None. PROCEDURES: Right elbow incision and drainage, olecranon bursectomy, excision of suture material, and placement of iodoform packing of right elbow by Dr. Savage on 02/01/2020. BRIEF HISTORY: As dictated in the history and physical. HOSPITAL SUMMARY: The patient was admitted on the above-noted date. He had seen Dr. Savage in the office that day where a sample of fluid had been aspirated from his right olecranon bursa. This was sent off for culture with the patient and he was admitted for IV antibiotics and possible surgery. It was most likely he would need surgery and was then taken to the operating room on 02/01/2020 where the above-noted procedure was performed. He had been started on IV vancomycin and cultures were followed during his stay. The patient was seen by [facility] on a daily basis for medical management. On his first postoperative day, he was sitting up in bed watching TV. He was complaining of some shooting pains off and on in the elbow, but was otherwise feeling okay. No bowel movement since Monday, passing flatus, concerned about constipation. He had stated he was trying to hold off stronger narcotics for that reason and had no other complaints. Dressings were removed, it showed moderate erythema around the wound in the lateral portion of the elbow. He is nontender on palpation of the forearm and upper arm to the axilla, moderately tender on palpation over the elbow itself. 15 inches of packing was removed. He had moderate drainage during that time and that was mostly bloody. No purulence noted. No foul odor. Wound was redressed with a bulky dressing. Vital signs were stable and he was afebrile. Cultures were showing Staph Lugdunensis MSSA that was from the aspirate in the office. The current OR culture was showing staph species which also grew Staph Lugdunensis. Pt has PCN allergy. I discussed with the medicine service about switching him to IV doxycycline. MiraLax was added to his bowel regimen, and with his hesitancy to use narcotics, Toradol 15 mg IV q.6 hours was added for 24 hours and he was continued on his current pain regimen of Tylenol, oxycodone, and morphine sulfate. With his previous history of a DVT in the lower extremity, Lovenox 40 mg subQ daily was added. With the amount of drainage he was having, he was made n.p.o. after midnight for a question of second washout. By his second postoperative day, pain was controlled. He had mentioned he had some slight numbness and tingling in his 4th and 5th fingers on the operative side, but stated that that was not new and had no other complaints. Dressing was removed. He had a small amount of bloody drainage noted on the Rakesh wrap. The dressing that was put on in the prior day did not need to be reinforced. He had much less erythema around the elbow; however, there was a central portion that was still over the lateral elbow near the incision that continued. 20 inches of packing was removed. Minimal drainage was noted at that time and wound was redressed. Vital signs were stable. He was afebrile. He was switched to IV doxycycline and it was felt he would not need a second washout and his diet was restarted. I was called by the medicine service about the patient having a reaction to the doxycycline infusion. He apparently had severe burning and a fluttering feeling in his heart with infusion of the doxycycline. This was discontinued. The patient has a history of PENICILLIN ALLERGY. However, Ancef was initially given as a test dose, which the patient tolerated and he was started on 2 grams IV q.[address] Savage saw him on the evening of 02/02 and removed the remainder of the packing. He preferred to keep the patient on the IV antibiotics for a minimum of 7-10 days, but some coverage up to 6 weeks postop due to involvement of infection in the old suture material extending into the bone drill holes status post prior triceps muscular repair. By 02/04/2020, he was sitting in his chair at the bedside. He had no complaints. An ultrasound-guided IV was placed by the IV team for IV antibiotics. His dressing was changed. He had less erythema, less swelling. The patient had good range of motion of the right elbow. Minimal drainage noted on the dressing and it was redressed. Moving all fingers well. Vital signs were stable. He was afebrile. Case management talked to the patient about home health services versus [facility]. He was currently on Ancef, which he was receiving every 8 hours. The patient did not want to come to the [facility] and was not possible to do this every 8 hours. He was then switched to IV Rocephin 2 grams daily. A test dose was given, which the patient tolerated. He was transfused through his new ultrasound IV that was placed by the team and the patient progressed well. Plans were for him to be discharged to home with 10 days of IV Rocephin. He had switched to home health services, of which then blood work will be drawn in 1 week and be sent to Dr. Savage. Prior to his discharge, I was called with the patient refusing the Lovenox, and after discussing the risks, patient still did not want to have Lovenox at home. He agreed to aspirin 81 mg p.o. b.i.d. I discussed this with the hospitalist service and also with Dr. Savage of which they are both in agreement that it would be okay for the aspirin p.o. b.i.d. and otherwise, the patient was remaining stable and it was felt he could be discharged to home with home health services. For further review, please see chart. LABORATORY AND X-RAY DATA: As per chart. DISCHARGE INSTRUCTIONS: The patient was discharged to home in satisfactory condition on 02/04/2020. DIET: Diabetic. ACTIVITY: Change dressing daily. Ice pack to the right elbow regularly, keep elbow elevated when at rest. Use sling for comfort when ambulating. Gentle range of motion of the elbow is okay. Call the office if you have an increased temperature of 101.5 or greater, chills, nausea, vomiting, increased redness around the elbow, increased drainage from the elbow. You will be receiving antibiotics at home through an IV for at least 7-10 days. You will have blood work drawn at least once while receiving antibiotics. Follow up with Dr. Savage in 7-10 days. Please call for an appointment. DISCHARGE MEDICATIONS: Acetaminophen 1000 mg p.o. q.8 hours, aspirin 81 mg p.o. b.i.d., ceftriaxone 2 grams IV daily x10 days, meloxicam 15 mg p.o. daily, oxycodone 5 mg p.o. q.4 hours p.r.n., MiraLax 17 grams p.o. daily p.r.n. constipation. Resume home meds as listed. Stop taking previous aspirin dosage. Discussed turmeric root extract, which the patient said he was going to continue to take. MTDD
== END 2020-02-04 17:11 | disposition home health service (06) | DRG 501 ==
LOC: ED 11:19 → 3E 12:45